=== PATIENT | male | born 1980 | race African-American/Black ===

== ENCOUNTER 2019-06-09 14:16 | Emergency (ER) | payer BC, OTHER ==
--- NOTE | 2019-06-09 14:25 | PDOC ---
Rapid Medical Evaluation Time Seen by Provider: 06/09/19 14:23 Medical Evaluation: 06/09/19 14:23 HPI: Believes he may have swallowed a tooth pick today PE:No distress ORDERS: x-rays Discharge Disposition - Diagnosis Sensation of foreign body - Referrals - Patient Instructions - Post Discharge Activity
[2019-06-09 14:27] VITALS: BP 122/82; PULSE 69; TEMP 98; BMI 22.3
--- NOTE | 2019-06-09 15:54 | PDOC ---
History of Present Illness - General Chief Complaint: Pain Stated Complaint: PAIN Time Seen by Provider: 06/09/19 14:23 History Source: Patient - History of Present Illness Severity: mild Past History - Past Medical History Allergies/Adverse Reactions: Allergies Allergy/AdvReac Type Severity Reaction Status Date / Time No Known Allergies Allergy Verified 06/09/19 14:24 COPD: No - Suicide/Smoking/Psychosocial Hx Smoking History: Never smoked Have you smoked in the past 12 months: No Information on smoking cessation initiated: No Hx Alcohol Use: No Drug/Substance Use Hx: No Review of Systems - Review of Systems Constitutional: No: Fever Respiratory: No: Shortness of Breath, Stridor ABD/GI: No: Blood Streaked Bowels, Constipated, Diarrhea, Nausea, Rectal Bleeding, Vomiting, Abdominal cramping, Tarry Stools *Physical Exam - Vital Signs Last Vital Signs Temp Pulse Resp BP Pulse Ox 98 F 69 16 122/82 100 06/09/19 14:24 06/09/19 14:24 06/09/19 14:24 06/09/19 14:24 06/09/19 14:24 - Physical Exam General Appearance: Yes: Appropriately Dressed. No: Apparent Distress HEENT: positive: Normal Voice Neck: positive: Supple Respiratory/Chest: positive: Lungs Clear, Normal Breath Sounds. negative: Respiratory Distress, Stridor Gastrointestinal/Abdominal: positive: Normal Bowel Sounds, Soft. negative: Tender, Distended, Guarding Integumentary: positive: Dry, Warm Neurologic: positive: Fully Oriented, Alert, Normal Mood/Affect Medical Decision Making - Medical Decision Making 06/09/19 15:55 39 yo M, no sig hx, here due to concern that he might have swallowed a toothpick at lunch today. Ate a sandwich that was presented to him w/ 2 toothpicks in it and does not remember if he removed 1 of them. Had some "discomfort" to mid abd after eating that has since improved. No neck pain, fb sensation, dysphagia, SOB, n/v or change in BM See exam Possible fb ingestion (toothpick) Asymptomatic at this time w/ normal exam XR chest/abd ordered from [facility] and neg -Dc w/ reassurance, strict return precautions given *DC/Admit/Observation/Transfer Diagnosis at time of Disposition: Sensation of foreign body - Discharge Dispostion Disposition: HOME Condition at time of disposition: Good - Referrals Referrals: Florian Mckeon MD [Primary Care Provider] - - Patient Instructions Additional Instructions: Your x-rays were normal today. There were no obvious foreign bodies visualized. As long as symptoms are getting better, there is nothing to do, vomiting, fever. If you develop severe abdominal pain, vomiting, fever or bloody stools, return to ED immediately - Post Discharge Activity
== END 2019-06-09 15:50 | disposition home or self-care (01) ==
LOC: JERFT 14:16
DX: R09.89 Other specified symptoms and signs involving the circulatory and respiratory systems (principal)
CPT/HCPCS: 71046-TC-FY; 74018-TC-FY; 99281-25

== ENCOUNTER 2022-12-02 09:16 | Emergency (ER) | payer BC, OTHER ==
[2022-12-02 09:33] VITALS: PULSE 61; RESP 20; BMI 22.3
[2022-12-02 12:06] VITALS: BP 109/72; TEMP 97.8
[2022-12-02 12:44] LABS: EOS % 3.2 % (0-4.5); HEMATOCRIT 44.4 % (35.4-49); LYMPH % 20.5 % (8-40); MCH 30.6 pg (25.7-33.7); MCHC 33.9 g/dl (32.0-35.9); MEAN CELL VOLUME 90.3 fl (80-96); MEAN PLT VOLUME 9.9 fl (7.5-11.1); MONO % 7.2 % (3.8-10.2); NEUT % 68.1 % (42.8-82.8); PLATELET COUNT 185 10^3/uL (134-434); RBC 4.91 M/mm3 (4.00-5.60); RDW 13.5 % (11.9-15.9); WHITE BLOOD COUNT 6.1 K/mm3 (4.0-10.0)
[2022-12-02 13:03] LABS: CHLORIDE 104 mmol/L (98-107); SODIUM 139 mmol/L (136-145)
[2022-12-02 13:07] LABS: ANION GAP 6 MMOL/L (8-16); BLOOD UREA NITROGEN 17.8 mg/dL (7-18); CALCIUM 9.2 mg/dL (8.5-10.1); CO2 29 mmol/L (21-32)
[2022-12-02 13:08] LABS: GLUCOSE,RANDOM 93 mg/dL (74-106)
[2022-12-02 13:10] LABS: CREATININE 0.9 mg/dL (0.55-1.3); SGOT/AST 31 U/L (15-37)
[2022-12-02 13:11] LABS: SGPT/ALT 35 U/L (13-61)
[2022-12-02 13:12] LABS: BILIRUBIN,TOTAL 2.2 mg/dL (0.2-1); TOT PROT 7.1 g/dl (6.4-8.2)
[2022-12-02 13:13] LABS: ALK PHOS 83 U/L (45-117)
== END 2022-12-02 15:29 | disposition home or self-care (01) ==
LOC: SUPCPDRO 09:16 → JER 09:16
DX: R61 Generalized hyperhidrosis (principal); M54.50 Low back pain, unspecified
CPT/HCPCS: 36415; 71046-TC-FY; 72131-TC; 73060-TC-RT-FY; 73590-TC-RT-FY; 80053; 82550; 82553; 85025; 93005; 93010; 99285-25